=== PATIENT | male | born 1950 | race Caucasian/White ===

== ENCOUNTER 2017-09-22 22:30 | Emergency (ER) | payer MEDICARE, MEDICAID ==
[~2017-09-22] VITALS: Ht 152.4 cm; Wt 78.0 kg
[~2017-09-22 22:30] MED LIST: ACET1TAB12 PO; AMLO10TA80 PO; BENA20TA3 PO; CLON0.2T PO; GABA-531 PO; GLIP5TAB12 PO; GLYBURIDE; HYDR-3513 PO; IBUP-2030 PO; METF10002 PO; NAPR-679 PO; RANI150C12 PO; SIMVASTATIN; ZOLP10TA2 PO; ZOLP10TA6 PO
[2017-09-23] MEDS ORDERED: HYDROCODONE/ACETAMINOPHEN 5/325MG TABLET PO ONE (11:15)
[2017-09-23 12:10] VITALS: BP 145/88
[2017-09-23 17:13] LABS: CLARITY URINE CLEAR (CLEAR); COLOR URINE YELLOW (YELLOW); KETONES URINE 1+ (NEGATIVE); LEUKOCYTE ESTERASE URINE NEGATIVE (NEGATIVE); NITRITE URINE NEGATIVE (NEGATIVE); OCCULT BLOOD URINE NEGATIVE (NEGATIVE); PROTEIN URINE TRACE (NEGATIVE); SPECIFIC GRAVITY URINE 1.018 (1.005-1.030); UROBILINOGEN URINE 0.2 E.U./dL (0.2-1.0)
== END 2017-09-23 12:12 | disposition home or self-care (01) ==
LOC: ER 23:20
DX: S22.31XA Fracture of one rib, right side, initial encounter for closed fracture (principal); I10 Essential (primary) hypertension; E78.00 Pure hypercholesterolemia, unspecified; E11.9 Type 2 diabetes mellitus without complications; F17.200 Nicotine dependence, unspecified, uncomplicated; W19.XXXA Unspecified fall, initial encounter; Y93.89 Activity, other specified; Y99.8 Other external cause status; Y92.89 Other specified places as the place of occurrence of the external cause
CPT/HCPCS: 71101; 81001; 82962; 99285

== ENCOUNTER 2018-09-29 16:37 | Emergency (ER) | payer MEDICARE, MEDICAID ==
[~2018-09-29] VITALS: Ht 170.2 cm; Wt 70.0 kg
[~2018-09-29 16:37] MED LIST changes: +BENA20TA10 PO; -BENA20TA3 PO; +METF-416 PO; -METF10002 PO
[2018-09-29 16:40] VITALS: BP 111/65
== END 2018-09-29 21:20 | disposition left against medical advice (07) ==
LOC: ER 16:37
DX: F10.129 Alcohol abuse with intoxication, unspecified (principal); Z53.21 Procedure and treatment not carried out due to patient leaving prior to being seen by health care provider

== ENCOUNTER 2019-02-08 20:51 | Emergency (ER) | payer MEDICARE, MEDICAID ==
[~2019-02-08] VITALS: Ht 167.6 cm; Wt 77.2 kg
[2019-02-08 22:30] LABS: BASOPHILS % 0.5 % (0.0-2.0); EOSINOPHILS % 0.4 % (0.0-5.0); HEMATOCRIT. 35.6 % (42.0-52.0); HEMOGLOBIN. 12.1 g/dL (14.0-18.0); LYMPHOCYTES % 23.3 % (20.0-50.0); MEAN CORPUSCULAR HEMOGLOBIN 32.5 pg (28.0-32.0); MEAN PLATELET VOLUME 8.1 fl (7.4-10.4); MONOCYTES % 6.1 % (2.0-8.0); NEUTROPHILS % 69.7 % (40.0-76.0); PLATELET 207 x1000/uL (130-400); RED BLOOD CELL COUNT 3.71 mill/uL (4.7-6.1); RED CELL DISTRIBUTION WIDTH 13.5 % (11.6-14.6)
[2019-02-08 22:31] LABS: INR 1.1; PROTHROMBIN TIME 10.8 sec (9.6-11.0)
[2019-02-08 22:37] LABS: CHLORIDE 103 mEq/L (98-107)
[2019-02-08 22:41] LABS: ETHANOL BLOOD 275 mg/dL
[2019-02-08] MEDS ORDERED: MAGNESIUM/ALUMINUM HYDROXIDE/SIMETHICONE 30ML UDC PO NR (23:51)
[2019-02-08] MEDS ORDERED: ONDANSETRON HCL 4MG/2ML INJ IV NR (23:51)
[2019-02-08] MEDS ORDERED: VISCOUS LIDOCAINE 2% 15 ML UDC PO NR (23:51)
[2019-02-08] MEDS ORDERED: FAMOTIDINE 20MG/2ML VIAL IV NR (23:51)
[2019-02-08] MEDS ORDERED: SODIUM CHLORIDE 0.9% 1,000 ML IV NR (23:51)
[2019-02-09 01:00] VITALS: BP 101/63
== END 2019-02-09 02:10 | disposition home or self-care (01) ==
LOC: ER 20:51
DX: R10.13 Epigastric pain (principal); R11.2 Nausea with vomiting, unspecified; D64.9 Anemia, unspecified; F10.129 Alcohol abuse with intoxication, unspecified; E11.9 Type 2 diabetes mellitus without complications; I11.0 Hypertensive heart disease with heart failure; Y90.8 Blood alcohol level of 240 mg/100 ml or more
CPT/HCPCS: 36415; 71045; 80053; 80320; 83690; 85025; 85610; 93005; 96361; 96374; 96375; 99284; J2405; J3490; G0480

== ENCOUNTER 2019-11-27 17:03 | Emergency (ER) | payer MEDICARE, OTHER, MEDICAID ==
[~2019-11-27] VITALS: Ht 165.1 cm; Wt 85.0 kg
[2019-11-27 17:15] VITALS: BP 108/72
== END 2019-11-27 18:24 | disposition left against medical advice (07) ==
LOC: ER 17:03
DX: R53.1 Weakness (principal); Z53.21 Procedure and treatment not carried out due to patient leaving prior to being seen by health care provider

== ENCOUNTER 2021-02-06 16:12 | Emergency (ER) | payer MEDICARE, OTHER, MEDICAID ==
[~2021-02-06] VITALS: Ht 172.7 cm; Wt 82.0 kg
[~2021-02-06 16:12] MED LIST changes: -GABA-531 PO; +GABA-532 PO
[2021-02-06 16:18] VITALS: BP 100/54
== END 2021-02-06 17:15 | disposition left against medical advice (07) ==
LOC: ER 16:12
DX: M79.604 Pain in right leg (principal); E11.9 Type 2 diabetes mellitus without complications; I10 Essential (primary) hypertension; Z79.899 Other long term (current) drug therapy; Z98.890 Other specified postprocedural states
CPT/HCPCS: 99281

== ENCOUNTER 2021-05-26 16:17 | Inpatient (IN) | payer MEDICARE, MEDICAID ==
[~2021-05-26] VITALS: Ht 154.9 cm; Wt 81.3 kg
[~2021-05-26 16:17] MED LIST changes: -GLYBURIDE; -SIMVASTATIN
[2021-05-26 17:06] LABS: BASOPHILS % 0.7 % (0.0-2.0); EOSINOPHILS % 4.4 % (0.0-5.0); HEMATOCRIT. 34.6 % (42.0-52.0); HEMOGLOBIN. 12.2 g/dL (14.0-18.0); LYMPHOCYTES % 27.2 % (20.0-50.0); MEAN CORPUSCULAR VOLUME 93.8 fL (80.0-94.0); MEAN PLATELET VOLUME 8.2 fl (7.4-10.4); MONOCYTES % 7.1 % (2.0-8.0); NEUTROPHILS % 60.6 % (40.0-76.0); PLATELET 199 x1000/uL (130-400); RED BLOOD CELL COUNT 3.69 mill/uL (4.7-6.1); RED CELL DISTRIBUTION WIDTH 14.1 % (11.6-14.6)
[2021-05-26 17:13] LABS: CHLORIDE 103 mEq/L (98-107)
[2021-05-26 17:15] LABS: INR 1.1; PROTHROMBIN TIME 11.5 sec (9.6-11.0)
[2021-05-26 17:20] LABS: LDL CHOLESTEROL 110 mg/dL (5-100)
[2021-05-26 17:21] LABS: HDL CHOLESTEROL 41 mg/dL (40-59)
[2021-05-26] MEDS ORDERED: ENOXAPARIN 80MG/0.8ML SYR SUBCUT NR (17:30)
[2021-05-26 19:14] LABS: CLARITY URINE CLEAR (CLEAR); COLOR URINE YELLOW (YELLOW); KETONES URINE NEGATIVE (NEGATIVE); LEUKOCYTE ESTERASE URINE NEGATIVE (NEGATIVE); NITRITE URINE NEGATIVE (NEGATIVE); OCCULT BLOOD URINE NEGATIVE (NEGATIVE); PROTEIN URINE NEGATIVE (NEGATIVE); SPECIFIC GRAVITY URINE 1.043 (1.005-1.030); UROBILINOGEN URINE 0.2 E.U./dL (0.2-1.0)
[2021-05-26] MEDS ORDERED: ATORVASTATIN CALCIUM 10MG TABLET PO SCH (21:00)
[2021-05-26 23:12] VITALS: BP 141/46
[2021-05-27] VITALS: BP 141/40
[2021-05-27 04:00] VITALS: BP 105/45
[2021-05-27] MEDS: ENOXAPARIN 80MG/0.8ML SYR SUBCUT SCH ×2 (05:38→17:08)
[2021-05-27 07:04] LABS: BASOPHILS % 0.7 % (0.0-2.0); EOSINOPHILS % 5.3 % (0.0-5.0); HEMATOCRIT. 35.1 % (42.0-52.0); HEMOGLOBIN. 12.2 g/dL (14.0-18.0); LYMPHOCYTES % 37.3 % (20.0-50.0); MEAN CORPUSCULAR HEMOGLOBIN 32.5 pg (28.0-32.0); MEAN CORPUSCULAR VOLUME 93.1 fL (80.0-94.0); MEAN PLATELET VOLUME 8.2 fl (7.4-10.4); MONOCYTES % 7.9 % (2.0-8.0); NEUTROPHILS % 48.8 % (40.0-76.0); PLATELET 199 x1000/uL (130-400); RED BLOOD CELL COUNT 3.77 mill/uL (4.7-6.1); RED CELL DISTRIBUTION WIDTH 14.2 % (11.6-14.6)
[2021-05-27 07:15] LABS: CHLORIDE 106 mEq/L (98-107)
[2021-05-27] MEDS: ASPIRIN 81MG TABLET PO SCH (08:17)
[2021-05-27 08:21] VITALS: BP 123/40
[2021-05-27] MEDS ORDERED: THIAMINE HCL 100MG TABLET PO NR (09:30)
[2021-05-27] MEDS ORDERED: HYDROCODONE/ACETAMINOPHEN 5/325MG TABLET PO PRN (09:30)
[2021-05-27] MEDS ORDERED: ACETAMINOPHEN 325MG TABLET PO PRN (09:30)
[2021-05-27] MEDS ORDERED: NALOXONE HCL 0.4MG/ML VIAL IV PRN (09:45)
[2021-05-27] MEDS ORDERED: DEXTROSE 50% WATER 50ML SYRINGE IV PRN (10:00)
[2021-05-27] MEDS: LINAGLIPTIN 5MG TABLET PO SCH (10:53)
[2021-05-27] MEDS: BLOOD SUGAR DIAGNOSTIC STRIP TEST SCH ×3 (11:26→21:00)
[2021-05-27] MEDS: INSULIN LISPRO 100 UNITS/ML SUBCUT SCH ×3 (11:53→21:00)
[2021-05-27 12:03] VITALS: BP 108/51
[2021-05-27 15:55] VITALS: BP 108/53
[2021-05-27] MEDS: IPRATROPIUM/ALBUTEROL 0.5-3(2.5)MG/3ML NEB HHN SCH ×2 (16:14→21:41)
[2021-05-27] MEDS: METFORMIN HCL 500MG TABLET PO SCH (17:08)
[2021-05-27 20:00] VITALS: BP 118/65
[2021-05-27] MEDS ORDERED: ATORVASTATIN CALCIUM 40MG TABLET PO SCH (21:00)
[2021-05-27] MEDS: OMEPRAZOLE 20MG CAPSULE EXTENDED RELEASE PO SCH (21:05)
[2021-05-28] VITALS: BP 125/78
[2021-05-28] MEDS: IPRATROPIUM/ALBUTEROL 0.5-3(2.5)MG/3ML NEB HHN SCH ×4 (01:35→12:00)
[2021-05-28 04:00] VITALS: BP 114/77
[2021-05-28] MEDS: ENOXAPARIN 80MG/0.8ML SYR SUBCUT SCH (05:36)
[2021-05-28] MEDS: BLOOD SUGAR DIAGNOSTIC STRIP TEST SCH ×2 (05:40→12:31)
[2021-05-28] MEDS: OMEPRAZOLE 20MG CAPSULE EXTENDED RELEASE PO SCH (06:09)
[2021-05-28] MEDS: METFORMIN HCL 500MG TABLET PO SCH (06:11)
[2021-05-28] MEDS: INSULIN LISPRO 100 UNITS/ML SUBCUT SCH ×2 (06:14→12:34)
[2021-05-28] MEDS ORDERED: OMEPRAZOLE 20MG CAPSULE EXTENDED RELEASE PO SCH (06:40)
[2021-05-28 07:34] LABS: BASOPHILS % 0.5 % (0.0-2.0); EOSINOPHILS % 1.6 % (0.0-5.0); HEMATOCRIT. 37.3 % (42.0-52.0); HEMOGLOBIN. 12.9 g/dL (14.0-18.0); LYMPHOCYTES % 26.6 % (20.0-50.0); MEAN CORPUSCULAR HEMOGLOBIN 32.4 pg (28.0-32.0); MEAN CORPUSCULAR VOLUME 93.8 fL (80.0-94.0); MEAN PLATELET VOLUME 8.1 fl (7.4-10.4); MONOCYTES % 5.9 % (2.0-8.0); NEUTROPHILS % 65.4 % (40.0-76.0); PLATELET 204 x1000/uL (130-400); RED BLOOD CELL COUNT 3.98 mill/uL (4.7-6.1); RED CELL DISTRIBUTION WIDTH 14.5 % (11.6-14.6)
[2021-05-28 07:44] LABS: CHLORIDE 104 mEq/L (98-107)
[2021-05-28 08:00] VITALS: BP 126/85
[2021-05-28] MEDS: ASPIRIN 81MG TABLET PO SCH (08:46)
[2021-05-28] MEDS: LINAGLIPTIN 5MG TABLET PO SCH (08:46)
[2021-05-28] MEDS ORDERED: THIAMINE HCL 100MG TABLET PO SCH (09:00)
[2021-05-28] MEDS ORDERED: FOLIC ACID/VITAMIN B COMP W-C TABLET PO SCH (09:00)
[2021-05-28] MEDS ORDERED: DOCUSATE SODIUM 250MG CAPSULE PO SCH (09:00)
[2021-05-28 12:00] VITALS: BP 126/75
[2021-05-28 13:05] VITALS: BP 126/75
[2021-05-28] MEDS ORDERED: APIXABAN 5 MG TABLET PO SCH (18:00)
[2021-05-29] MEDS ORDERED: FAMOTIDINE 20MG TABLET PO SCH (09:00)
== END 2021-05-28 14:00 | disposition home or self-care (01) | DRG 175 ==
LOC: ER 16:17 → MICUSO 16:55 → EDBEDREQ 18:42 → EDBEDREQTM 18:42 → 7EST 20:51
PROVIDERS: ADMIT Internal Medicine Geriatric Medicine; ATTEND Internal Medicine Geriatric Medicine
DX: I26.99 Other pulmonary embolism without acute cor pulmonale (principal); J96.01 Acute respiratory failure with hypoxia; I50.32 Chronic diastolic (congestive) heart failure; M96.1 Postlaminectomy syndrome, not elsewhere classified; I48.0 Paroxysmal atrial fibrillation; I25.10 Atherosclerotic heart disease of native coronary artery without angina pectoris; I11.0 Hypertensive heart disease with heart failure; G89.4 Chronic pain syndrome; M19.90 Unspecified osteoarthritis, unspecified site; E78.5 Hyperlipidemia, unspecified; E78.1 Pure hyperglyceridemia; E78.00 Pure hypercholesterolemia, unspecified; Z96.651 Presence of right artificial knee joint; E11.9 Type 2 diabetes mellitus without complications; Y90.9 Presence of alcohol in blood, level not specified; F10.20 Alcohol dependence, uncomplicated; F41.1 Generalized anxiety disorder; F32.9 Major depressive disorder, single episode, unspecified; Z79.01 Long term (current) use of anticoagulants; Z79.899 Other long term (current) drug therapy; Z79.84 Long term (current) use of oral hypoglycemic drugs; Z79.1 Long term (current) use of non-steroidal anti-inflammatories (NSAID)
CPT/HCPCS: 36415; 71045; 80048; 80061; 81003; 82962; 83036; 83735; 83880; 84484; 85025; 93005; 93306; 93970; 94640; 99285; J1650; J1815

== ENCOUNTER 2021-08-06 16:13 | Inpatient (IN) | payer MEDICARE, MEDICAID ==
[~2021-08-06] VITALS: Ht 167.6 cm; Wt 79.4 kg
[2021-08-06] MEDS ORDERED: ACETAMINOPHEN 325MG TABLET PO ONE (17:30)
[2021-08-06] MEDS ORDERED: MORPHINE SULFATE 4 MG/ML CPJ (NOT FOR IM USE) IV STA (19:17)
[2021-08-06 20:34] LABS: BASOPHILS % 0.3 % (0.0-2.0); HEMATOCRIT. 39.1 % (42.0-52.0); LYMPHOCYTES % 19.1 % (20.0-50.0); MEAN CORPUSCULAR HEMOGLOBIN 31.8 pg (28.0-32.0); MEAN CORPUSCULAR VOLUME 95.8 fL (80.0-94.0); MEAN PLATELET VOLUME 9.1 fl (7.4-10.4); MONOCYTES % 6.5 % (2.0-8.0); NEUTROPHILS % 73.1 % (40.0-76.0); PLATELET 148 x1000/uL (130-400); RED BLOOD CELL COUNT 4.09 mill/uL (4.7-6.1); RED CELL DISTRIBUTION WIDTH 13.8 % (11.6-14.6)
[2021-08-06 20:42] LABS: CHLORIDE 102 mEq/L (98-107)
[2021-08-06 20:43] LABS: INR 1.1; PROTHROMBIN TIME 11.7 sec (9.6-11.0)
[2021-08-06] MEDS ORDERED: SODIUM CHLORIDE 0.9% 1,000 ML IV ONE (21:45)
[2021-08-06 23:43] VITALS: BP 108/50
[2021-08-07 04:00] VITALS: BP 146/87
[2021-08-07] MEDS ORDERED: ONDANSETRON HCL 4MG/2ML INJ IV PRN (05:15)
[2021-08-07] MEDS ORDERED: ACETAMINOPHEN 325MG TABLET PO PRN (05:15)
[2021-08-07] MEDS ORDERED: DIPHENHYDRAMINE 50MG/ML VIAL IV PRN (05:15)
[2021-08-07] MEDS ORDERED: CLONIDINE 0.1MG TABLET PO PRN (05:15)
[2021-08-07] MEDS: DEXT 5%/0.45% NACL 1000ML 1,000 ML IV SCH ×2 (05:38→21:19)
[2021-08-07] MEDS: MORPHINE SULFATE 2 MG/ML CPJ (NOT FOR IM USE) IV PRN ×2 (05:41→21:10)
[2021-08-07] MEDS ORDERED: NALOXONE HCL 0.4MG/ML VIAL IV PRN (05:45)
[2021-08-07] MEDS ORDERED: DEXTROSE 50% WATER 50ML SYRINGE IV PRN (07:15)
[2021-08-07] MEDS: BLOOD SUGAR DIAGNOSTIC STRIP TEST SCH ×4 (07:28→21:16)
[2021-08-07 08:00] VITALS: BP 135/66
[2021-08-07] MEDS: INSULIN LISPRO 100 UNITS/ML SUBCUT SCH ×4 (08:32→21:20)
[2021-08-07 12:00] VITALS: BP 134/68
[2021-08-07] MEDS: AMLODIPINE 10MG TABLET PO SCH (12:05)
[2021-08-07] MEDS: ENOXAPARIN 40MG/0.4ML SYR SUBCUT SCH (12:06)
[2021-08-07] MEDS: GABAPENTIN 300MG CAPSULE PO SCH ×3 (12:45→21:11)
[2021-08-07 16:00] VITALS: BP 130/77
[2021-08-07] MEDS ORDERED: APIX5TAB PO (19:48)
[2021-08-07 20:00] VITALS: BP 124/76
[2021-08-07] MEDS ORDERED: CLONIDINE 0.2MG TABLET PO SCH (21:00)
[2021-08-07] MEDS: CLONIDINE 0.1MG TABLET PO SCH (21:14)
[2021-08-08] VITALS: BP 123/68
[2021-08-08 04:00] VITALS: BP 122/71
[2021-08-08] MEDS: CLONIDINE 0.1MG TABLET PO SCH ×3 (04:34→21:19)
[2021-08-08] MEDS: GABAPENTIN 300MG CAPSULE PO SCH ×3 (05:05→21:18)
[2021-08-08] MEDS: MORPHINE SULFATE 2 MG/ML CPJ (NOT FOR IM USE) IV PRN ×2 (05:13→14:17)
[2021-08-08] MEDS: BLOOD SUGAR DIAGNOSTIC STRIP TEST SCH ×4 (05:28→21:13)
[2021-08-08] MEDS: GLIPIZIDE 5MG TABLET PO SCH (06:03)
[2021-08-08] MEDS: INSULIN LISPRO 100 UNITS/ML SUBCUT SCH ×4 (06:09→22:18)
[2021-08-08 07:29] LABS: BASOPHILS % 0.6 % (0.0-2.0); EOSINOPHILS % 3.3 % (0.0-5.0); HEMATOCRIT. 35.9 % (42.0-52.0); HEMOGLOBIN. 12.2 g/dL (14.0-18.0); LYMPHOCYTES % 24.8 % (20.0-50.0); MEAN CORPUSCULAR HEMOGLOBIN 32.1 pg (28.0-32.0); MEAN CORPUSCULAR VOLUME 94.4 fL (80.0-94.0); MEAN PLATELET VOLUME 8.9 fl (7.4-10.4); MONOCYTES % 13.2 % (2.0-8.0); NEUTROPHILS % 58.1 % (40.0-76.0); PLATELET 136 x1000/uL (130-400); RED CELL DISTRIBUTION WIDTH 13.5 % (11.6-14.6)
[2021-08-08 07:38] LABS: CHLORIDE 105 mEq/L (98-107)
[2021-08-08 08:00] VITALS: BP 130/61
[2021-08-08] MEDS: ENOXAPARIN 40MG/0.4ML SYR SUBCUT SCH (08:30)
[2021-08-08] MEDS: AMLODIPINE 10MG TABLET PO SCH (08:31)
[2021-08-08 12:00] VITALS: BP 120/70
[2021-08-08] MEDS: DEXT 5%/0.45% NACL 1000ML 1,000 ML IV SCH (14:25)
[2021-08-08 16:00] VITALS: BP 150/83
[2021-08-08 20:00] VITALS: BP 128/64
[2021-08-09] VITALS: BP 112/63
[2021-08-09 04:00] VITALS: BP 115/61
[2021-08-09] MEDS: CLONIDINE 0.1MG TABLET PO SCH ×3 (04:54→21:00)
[2021-08-09] MEDS: MORPHINE SULFATE 2 MG/ML CPJ (NOT FOR IM USE) IV PRN (04:56)
[2021-08-09] MEDS: GABAPENTIN 300MG CAPSULE PO SCH ×3 (04:58→22:49)
[2021-08-09] MEDS: BLOOD SUGAR DIAGNOSTIC STRIP TEST SCH ×4 (05:37→21:00)
[2021-08-09] MEDS: INSULIN LISPRO 100 UNITS/ML SUBCUT SCH ×4 (05:41→21:00)
[2021-08-09 06:23] LABS: BASOPHILS % 0.4 % (0.0-2.0); EOSINOPHILS % 4.5 % (0.0-5.0); HEMOGLOBIN. 11.3 g/dL (14.0-18.0); LYMPHOCYTES % 23.9 % (20.0-50.0); MEAN CORPUSCULAR HEMOGLOBIN 31.5 pg (28.0-32.0); MEAN CORPUSCULAR VOLUME 94.5 fL (80.0-94.0); MONOCYTES % 10.9 % (2.0-8.0); NEUTROPHILS % 60.3 % (40.0-76.0); PLATELET 125 x1000/uL (130-400); RED BLOOD CELL COUNT 3.59 mill/uL (4.7-6.1); RED CELL DISTRIBUTION WIDTH 13.4 % (11.6-14.6)
[2021-08-09 06:30] LABS: CHLORIDE 105 mEq/L (98-107)
[2021-08-09] MEDS: GLIPIZIDE 5MG TABLET PO SCH (06:51)
[2021-08-09 08:00] VITALS: BP 121/64
[2021-08-09] MEDS: DEXT 5%/0.45% NACL 1000ML 1,000 ML IV SCH (08:20)
[2021-08-09] MEDS: AMLODIPINE 10MG TABLET PO SCH (08:22)
[2021-08-09] MEDS: ENOXAPARIN 40MG/0.4ML SYR SUBCUT SCH (08:23)
[2021-08-09] MEDS ORDERED: LIDOCAINE HCL/EPINEPHRINE 1%-EPI 1:100,000 20 ML VIAL ONE (09:25)
[2021-08-09] MEDS ORDERED: POLYMYXIN B SULFATE 500000 UNITS/VIAL ONE (09:25)
[2021-08-09] MEDS ORDERED: VANCOMYCIN HCL 1 GM/VIAL ONE (09:25)
[2021-08-09] MEDS ORDERED: FENTANYL CITRATE/PF 50MCG/ML 2ML VIAL ONE ×2 (10:20→10:21)
[2021-08-09] MEDS ORDERED: SODIUM CHLORIDE 0.9% 10ML VIAL ONE (10:21)
[2021-08-09] MEDS ORDERED: PHENYLEPHRINE HCL 10 MG/ML 1ML (IV VIAL) IV ONE (10:21)
[2021-08-09] MEDS ORDERED: METOCLOPRAMIDE HCL 10MG/2ML VIAL ONE (10:21)
[2021-08-09] MEDS ORDERED: SUCCINYLCHOLINE CHLORIDE 200MG/10ML IV ONE (10:21)
[2021-08-09] MEDS ORDERED: CEFAZOLIN SODIUM 1000MG/VIAL ONE (10:21)
[2021-08-09] MEDS ORDERED: ONDANSETRON HCL 4MG/2ML INJ ONE (10:21)
[2021-08-09] MEDS ORDERED: NEOSTIGMINE METHYLSULFATE 1MG/ML 10 ML VIAL ONE (10:21)
[2021-08-09] MEDS ORDERED: GLYCOPYRROLATE 0.2 MG/ML 2ML VIAL ONE (10:21)
[2021-08-09] MEDS ORDERED: PROPOFOL 200MG/20ML VIAL IV ONE (10:21)
[2021-08-09] MEDS ORDERED: MIDAZOLAM HCL 2 MG/2 ML VIAL ONE (10:21)
[2021-08-09] MEDS ORDERED: ROPIVACAINE HCL 10MG/ML 20 ML VIAL EPI ONE (10:28)
[2021-08-09] MEDS ORDERED: VECURONIUM BROMIDE 10 MG/VIAL IV ONE (10:37)
[2021-08-09] MEDS ORDERED: MEPERIDINE HCL/PF 25MG/ML CPJ IV PRN ×2 (11:30)
[2021-08-09] MEDS ORDERED: SODIUM CHLORIDE 0.9% 1,000 ML IV ONE (11:30)
[2021-08-09] MEDS ORDERED: ONDANSETRON HCL 4MG/2ML INJ IV PRN (11:30)
[2021-08-09] MEDS ORDERED: MORPHINE SULFATE 2 MG/ML CPJ (NOT FOR IM USE) IV PRN (11:30)
[2021-08-09] MEDS ORDERED: FENTANYL CITRATE/PF 50MCG/ML 5ML VIAL ONE (11:36)
[2021-08-09] MEDS ORDERED: HYDROCODONE/ACETAMINOPHEN 5/325MG TABLET PO PRN (12:30)
[2021-08-09] MEDS ORDERED: HYDROMORPHONE PCA 10MG/50ML IV PRN (12:51)
[2021-08-09] MEDS ORDERED: DIPHENHYDRAMINE INJ IV PRN (13:00)
[2021-08-09] MEDS ORDERED: ONDANSETRON INJ IV PRN (13:00)
[2021-08-09] MEDS ORDERED: NALOXONE INJ IV PRN (13:00)
[2021-08-09] MEDS: HYDROMORPHONE HCL/PF 2MG/ML CPJ IV PRN ×3 (13:05→13:35)
[2021-08-09 16:00] VITALS: BP 115/68
[2021-08-09] MEDS: CEFAZOLIN 2,000 MG in DEXT 5% WATER 100 ML IV SCH ×2 (16:56→22:48)
[2021-08-09 20:00] VITALS: BP 109/64
[2021-08-10] VITALS: BP 118/67
[2021-08-10] MEDS: DEXT 5%/0.45% NACL 1000ML 1,000 ML IV SCH ×2 (02:18→15:18)
[2021-08-10 04:00] VITALS: BP 130/70
[2021-08-10 06:31] LABS: BASOPHILS % 0.4 % (0.0-2.0); EOSINOPHILS % 2.7 % (0.0-5.0); HEMATOCRIT. 28.5 % (42.0-52.0); HEMOGLOBIN. 9.7 g/dL (14.0-18.0); LYMPHOCYTES % 18.8 % (20.0-50.0); MEAN CORPUSCULAR HEMOGLOBIN 32.3 pg (28.0-32.0); MEAN CORPUSCULAR VOLUME 95.2 fL (80.0-94.0); MEAN PLATELET VOLUME 8.4 fl (7.4-10.4); MONOCYTES % 12.3 % (2.0-8.0); NEUTROPHILS % 65.8 % (40.0-76.0); PLATELET 144 x1000/uL (130-400); RED CELL DISTRIBUTION WIDTH 13.4 % (11.6-14.6)
[2021-08-10] MEDS: CEFAZOLIN 2,000 MG in DEXT 5% WATER 100 ML IV SCH ×3 (06:38→21:16)
[2021-08-10] MEDS: GLIPIZIDE 5MG TABLET PO SCH (06:39)
[2021-08-10] MEDS: GABAPENTIN 300MG CAPSULE PO SCH ×3 (06:40→21:16)
[2021-08-10 07:01] LABS: CHLORIDE 105 mEq/L (98-107)
[2021-08-10] MEDS: BLOOD SUGAR DIAGNOSTIC STRIP TEST SCH ×4 (07:14→20:39)
[2021-08-10] MEDS: CLONIDINE 0.1MG TABLET PO SCH ×3 (07:16→21:16)
[2021-08-10 08:00] VITALS: BP 120/68
[2021-08-10] MEDS: ENOXAPARIN 40MG/0.4ML SYR SUBCUT SCH (08:42)
[2021-08-10] MEDS: INSULIN LISPRO 100 UNITS/ML SUBCUT SCH ×4 (08:45→21:18)
[2021-08-10] MEDS: AMLODIPINE 10MG TABLET PO SCH (08:46)
[2021-08-10] MEDS: LACTULOSE 20G/30ML UDC PO SCH ×2 (09:00→10:23)
[2021-08-10] MEDS ORDERED: ERGOCALCIFEROL 50000UNITS CAPSULE PO SCH (09:00)
[2021-08-10] MEDS: DOCUSATE SODIUM 250MG CAPSULE PO SCH (10:22)
[2021-08-10] MEDS: CALCIUM 1250MG TABLET (500MG ELEMENTAL CALCIUM) PO SCH (10:22)
[2021-08-10] MEDS: FERROUS SULFATE 325MG TABLET PO SCH ×2 (10:23→18:30)
[2021-08-10 10:43] LABS: TOTAL IRON BINDING CAPACITY 199 ug/dL (250-450)
[2021-08-10 12:00] VITALS: BP 130/72
[2021-08-10 16:00] VITALS: BP 105/59
[2021-08-10 20:00] VITALS: BP 110/53
[2021-08-11] VITALS: BP 110/64
[2021-08-11 04:00] VITALS: BP 105/60
[2021-08-11] MEDS: CLONIDINE 0.1MG TABLET PO SCH ×3 (05:00→21:12)
[2021-08-11] MEDS: CEFAZOLIN 2,000 MG in DEXT 5% WATER 100 ML IV SCH ×2 (05:58→15:15)
[2021-08-11] MEDS: GABAPENTIN 300MG CAPSULE PO SCH ×3 (06:01→21:12)
[2021-08-11] MEDS: INSULIN LISPRO 100 UNITS/ML SUBCUT SCH ×4 (06:01→21:14)
[2021-08-11] MEDS: BLOOD SUGAR DIAGNOSTIC STRIP TEST SCH ×4 (06:02→21:12)
[2021-08-11] MEDS: FERROUS SULFATE 325MG TABLET PO SCH ×2 (06:04→17:08)
[2021-08-11] MEDS: GLIPIZIDE 5MG TABLET PO SCH (06:07)
[2021-08-11 07:44] LABS: CHLORIDE 101 mEq/L (98-107)
[2021-08-11 08:00] VITALS: BP 99/53
[2021-08-11 08:33] LABS: BASOPHILS % 0.4 % (0.0-2.0); EOSINOPHILS % 3.2 % (0.0-5.0); MEAN CORPUSCULAR HEMOGLOBIN 31.8 pg (28.0-32.0); MEAN CORPUSCULAR VOLUME 93.8 fL (80.0-94.0); MEAN PLATELET VOLUME 8.1 fl (7.4-10.4); MONOCYTES % 13.2 % (2.0-8.0); NEUTROPHILS % 64.2 % (40.0-76.0); PLATELET 140 x1000/uL (130-400); RED BLOOD CELL COUNT 2.51 mill/uL (4.7-6.1); RED CELL DISTRIBUTION WIDTH 13.4 % (11.6-14.6)
[2021-08-11 08:39] LABS: HEMATOCRIT. 23.5 % (42.0-52.0)
[2021-08-11] MEDS: DOCUSATE SODIUM 250MG CAPSULE PO SCH (08:56)
[2021-08-11] MEDS: AMLODIPINE 10MG TABLET PO SCH (08:57)
[2021-08-11] MEDS: ENOXAPARIN 40MG/0.4ML SYR SUBCUT SCH (08:57)
[2021-08-11] MEDS ORDERED: MAGNESIUM 2 G PREMIX 50 ML IV NR (10:00)
[2021-08-11 11:40] LABS: HEMATOCRIT 23.6 % (42.0-52.0)
[2021-08-11 12:00] VITALS: BP 114/53
[2021-08-11] MEDS: APIXABAN 5 MG TABLET PO SCH ×2 (12:40→21:12)
[2021-08-11] MEDS: IPRATROPIUM/ALBUTEROL 0.5-3(2.5)MG/3ML NEB HHN SCH ×2 (13:56→21:20)
[2021-08-11] MEDS: CALCIUM 1250MG TABLET (500MG ELEMENTAL CALCIUM) PO SCH (14:45)
[2021-08-11 16:16] VITALS: BP 94/55
[2021-08-11 20:00] VITALS: BP 111/61
[2021-08-12] VITALS (11 sets, daily range): BP systolic 93–124; BP diastolic 50–70
[2021-08-12] MEDS: IPRATROPIUM/ALBUTEROL 0.5-3(2.5)MG/3ML NEB HHN SCH ×4 (02:04→20:38)
[2021-08-12] MEDS: CLONIDINE 0.1MG TABLET PO SCH ×3 (05:00→21:21)
[2021-08-12] MEDS: APIXABAN 5 MG TABLET PO SCH ×2 (06:08→18:04)
[2021-08-12] MEDS: BLOOD SUGAR DIAGNOSTIC STRIP TEST SCH ×4 (06:16→21:23)
[2021-08-12] MEDS: GABAPENTIN 300MG CAPSULE PO SCH ×3 (06:16→21:22)
[2021-08-12] MEDS: GLIPIZIDE 5MG TABLET PO SCH (06:16)
[2021-08-12] MEDS: INSULIN LISPRO 100 UNITS/ML SUBCUT SCH ×4 (06:19→21:23)
[2021-08-12] MEDS ORDERED: SORBITOL 70% SOLN 30ML PO NR (09:15)
[2021-08-12] MEDS: CALCIUM 1250MG TABLET (500MG ELEMENTAL CALCIUM) PO SCH (09:29)
[2021-08-12] MEDS: DOCUSATE SODIUM 250MG CAPSULE PO SCH (09:29)
[2021-08-12] MEDS: AMLODIPINE 10MG TABLET PO SCH (09:29)
[2021-08-12] MEDS: FERROUS SULFATE 325MG TABLET PO SCH ×2 (09:29→16:20)
[2021-08-12] MEDS ORDERED: NITROGLYCERIN OINT 1GM/INCH UDPKT TD PRN (11:00)
[2021-08-12 11:18] LABS: BASOPHILS % 0.4 % (0.0-2.0); EOSINOPHILS % 2.3 % (0.0-5.0); HEMATOCRIT. 26.4 % (42.0-52.0); LYMPHOCYTES % 10.7 % (20.0-50.0); MEAN CORPUSCULAR VOLUME 93.9 fL (80.0-94.0); MEAN PLATELET VOLUME 7.7 fl (7.4-10.4); MONOCYTES % 10.8 % (2.0-8.0); NEUTROPHILS % 75.8 % (40.0-76.0); PLATELET 149 x1000/uL (130-400); RED BLOOD CELL COUNT 2.81 mill/uL (4.7-6.1); RED CELL DISTRIBUTION WIDTH 13.7 % (11.6-14.6)
[2021-08-12 11:39] LABS: CHLORIDE 102 mEq/L (98-107)
[2021-08-12] MEDS ORDERED: DEXL60CA3 MT (17:56)
[2021-08-12] MEDS ORDERED: SITA100T11 MT (18:02)
[2021-08-12] MEDS ORDERED: ATOR-2 MT (18:02)
[2021-08-12] MEDS ORDERED: TAMS-11 MT (18:02)
[2021-08-12] MEDS ORDERED: LEVO5TAB13 MT (18:08)
[2021-08-12] MEDS ORDERED: EMPA10TA MT (18:21)
[2021-08-12] MEDS ORDERED: GABA-290 MT (18:21)
[2021-08-12] MEDS ORDERED: TRAZ-252 MT (18:21)
[2021-08-12] MEDS ORDERED: GLIM4TAB36 MT (18:21)
[2021-08-12] MEDS ORDERED: METF-873 MT (18:21)
[2021-08-12] MEDS ORDERED: FLUT9.9S BOTHNSTRLS (18:21)
[2021-08-12] MEDS ORDERED: DULA0.75 SQ (18:23)
[2021-08-12] MEDS ORDERED: HYDROCODONE/ACETAMINOPHEN 5/325MG TABLET PO PRN (19:15)
[2021-08-12] MEDS: HYDROCODONE/ACETAMINOPHEN 5/325MG TABLET PO PRN (19:23)
[2021-08-13] VITALS (7 sets, daily range): BP systolic 108–128; BP diastolic 50–69
[2021-08-13] MEDS: IPRATROPIUM/ALBUTEROL 0.5-3(2.5)MG/3ML NEB HHN SCH ×3 (01:18→14:14)
[2021-08-13] MEDS: GLIPIZIDE 5MG TABLET PO SCH (06:23)
[2021-08-13] MEDS: FERROUS SULFATE 325MG TABLET PO SCH ×2 (06:23→17:13)
[2021-08-13] MEDS: APIXABAN 5 MG TABLET PO SCH ×2 (06:23→17:13)
[2021-08-13] MEDS: GABAPENTIN 300MG CAPSULE PO SCH ×3 (06:23→20:48)
[2021-08-13] MEDS: CLONIDINE 0.1MG TABLET PO SCH ×3 (06:24→20:48)
[2021-08-13] MEDS: BLOOD SUGAR DIAGNOSTIC STRIP TEST SCH ×4 (06:31→20:49)
[2021-08-13] MEDS: INSULIN LISPRO 100 UNITS/ML SUBCUT SCH ×4 (06:38→20:49)
[2021-08-13] MEDS: CALCIUM 1250MG TABLET (500MG ELEMENTAL CALCIUM) PO SCH (08:40)
[2021-08-13] MEDS: AMLODIPINE 10MG TABLET PO SCH (08:40)
[2021-08-13] MEDS: DOCUSATE SODIUM 250MG CAPSULE PO SCH (08:40)
[2021-08-13 08:41] LABS: BASOPHILS % 0.6 % (0.0-2.0); EOSINOPHILS % 4.8 % (0.0-5.0); HEMATOCRIT. 26.7 % (42.0-52.0); HEMOGLOBIN. 9.2 g/dL (14.0-18.0); LYMPHOCYTES % 20.1 % (20.0-50.0); MEAN CORPUSCULAR HEMOGLOBIN 32.5 pg (28.0-32.0); MEAN CORPUSCULAR VOLUME 94.3 fL (80.0-94.0); MEAN PLATELET VOLUME 7.7 fl (7.4-10.4); MONOCYTES % 10.1 % (2.0-8.0); NEUTROPHILS % 64.4 % (40.0-76.0); PLATELET 175 x1000/uL (130-400); RED BLOOD CELL COUNT 2.84 mill/uL (4.7-6.1)
[2021-08-13 09:13] LABS: CHLORIDE 105 mEq/L (98-107)
[2021-08-13] MEDS: HYDROCODONE/ACETAMINOPHEN 5/325MG TABLET PO PRN ×2 (13:11→20:56)
== END 2021-08-13 21:29 | DRG 481 ==
LOC: ER 16:13 → 6EST 22:15 → EDBEDREQTM 22:22 → EDBEDREQ 22:22 → ENRESERV 22:40 → 8WST 08-10 23:43
PROVIDERS: ADMIT Internal Medicine Geriatric Medicine; ATTEND Internal Medicine Geriatric Medicine
PROC: 0QSC04Z Reposition Left Lower Femur with Internal Fixation Device, Open Approach (ICD-10-PCS; principal; 2021-08-09)
PROC: 30233N1 Transfusion of Nonautologous Red Blood Cells into Peripheral Vein, Percutaneous Approach (ICD-10-PCS; 2021-08-12)
DX: M97.12XA Periprosthetic fracture around internal prosthetic left knee joint, initial encounter (principal); I13.0 Hypertensive heart and chronic kidney disease with heart failure and stage 1 through stage 4 chronic kidney disease, or unspecified chronic kidney disease; N17.9 Acute kidney failure, unspecified; I50.30 Unspecified diastolic (congestive) heart failure; E87.1 Hypo-osmolality and hyponatremia; E11.22 Type 2 diabetes mellitus with diabetic chronic kidney disease; E11.51 Type 2 diabetes mellitus with diabetic peripheral angiopathy without gangrene; E78.00 Pure hypercholesterolemia, unspecified; E78.1 Pure hyperglyceridemia; E78.5 Hyperlipidemia, unspecified; F10.10 Alcohol abuse, uncomplicated; G89.4 Chronic pain syndrome; I25.10 Atherosclerotic heart disease of native coronary artery without angina pectoris; I48.0 Paroxysmal atrial fibrillation; M19.90 Unspecified osteoarthritis, unspecified site; M96.1 Postlaminectomy syndrome, not elsewhere classified; N18.9 Chronic kidney disease, unspecified; Z96.659 Presence of unspecified artificial knee joint; E83.42 Hypomagnesemia; I44.0 Atrioventricular block, first degree; Z20.822 Contact with and (suspected) exposure to COVID-19; D63.8 Anemia in other chronic diseases classified elsewhere; M81.0 Age-related osteoporosis without current pathological fracture; W05.0XXA Fall from non-moving wheelchair, initial encounter; D50.9 Iron deficiency anemia, unspecified; K59.00 Constipation, unspecified; Z79.84 Long term (current) use of oral hypoglycemic drugs; I25.2 Old myocardial infarction; Z79.01 Long term (current) use of anticoagulants; Z79.4 Long term (current) use of insulin; Z86.16 Personal history of COVID-19; Z86.711 Personal history of pulmonary embolism; Z98.1 Arthrodesis status; Z79.899 Other long term (current) drug therapy; Y93.89 Activity, other specified; Y92.89 Other specified places as the place of occurrence of the external cause; Y99.8 Other external cause status; Z90.10 Acquired absence of unspecified breast and nipple
CPT/HCPCS: 36415; 73502; 73552; 73562; 73590; 73700; 80048; 80053; 82962; 83036; 83540; 83550; 83735; 84484; 85014; 85018; 85025; 86850; 86900; 86920; 87426; 93005; 93306; 93971; 97162; 97166; 97168; 97530; 97535; 99285; C1713; J0330; J0690; J1170; J1650; J1815; J2250; J2270; J2370; J2405; J2704; J2710; J2765; J2795; J3010; J3370; J3475; J3490; J7030; J7040; J7060; L1830; P9016

== ENCOUNTER 2021-08-13 21:30 | Inpatient (IN) | payer MEDICARE, MEDICAID ==
[~2021-08-13] VITALS: Ht 167.6 cm; Wt 90.7 kg
[2021-08-13 21:30] VITALS: BP 124/67
[~2021-08-13 21:30] MED LIST changes: +APIX5TAB PO; +ATOR-2 MT; +DEXL60CA3 MT; +DULA0.75 SQ; +EMPA10TA MT; +FLUT9.9S BOTHNSTRLS; +GABA-290 MT; +GLIM4TAB36 MT; +LEVO5TAB13 MT; -METF-416 PO; +METF-873 MT; -RANI150C12 PO; +SITA100T11 MT; +TAMS-11 MT; +TRAZ-252 MT
[2021-08-13] MEDS ORDERED: CLONIDINE 0.1MG TABLET PO PRN (22:45)
[2021-08-13] MEDS ORDERED: NITROGLYCERIN OINT 1GM/INCH UDPKT TD PRN (22:45)
[2021-08-13] MEDS ORDERED: DEXTROSE 50% WATER 50ML SYRINGE IV PRN (22:45)
[2021-08-14] MEDS: IPRATROPIUM/ALBUTEROL 0.5-3(2.5)MG/3ML NEB HHN SCH ×4 (02:20→21:50)
[2021-08-14] MEDS: BLOOD SUGAR DIAGNOSTIC STRIP TEST SCH ×4 (05:38→21:00)
[2021-08-14] MEDS: GABAPENTIN 300MG CAPSULE PO SCH ×3 (05:39→23:23)
[2021-08-14] MEDS: APIXABAN 5 MG TABLET PO SCH ×2 (05:40→18:23)
[2021-08-14] MEDS: CLONIDINE 0.1MG TABLET PO SCH ×3 (05:40→22:00)
[2021-08-14] MEDS: GLIPIZIDE 5MG TABLET PO SCH (05:41)
[2021-08-14 08:00] VITALS: BP 121/62
[2021-08-14] MEDS: INSULIN LISPRO 100 UNITS/ML SUBCUT SCH ×4 (09:00→23:33)
[2021-08-14] MEDS: DOCUSATE SODIUM 250MG CAPSULE PO SCH (09:00)
[2021-08-14] MEDS: FERROUS SULFATE 325MG TABLET PO SCH ×2 (10:22→18:23)
[2021-08-14] MEDS: AMLODIPINE 10MG TABLET PO SCH (10:23)
[2021-08-14] MEDS: CALCIUM 1250MG TABLET (500MG ELEMENTAL CALCIUM) PO SCH (10:23)
[2021-08-14] MEDS: HYDROCODONE/ACETAMINOPHEN 5/325MG TABLET PO PRN ×2 (10:25→18:27)
[2021-08-14] MEDS ORDERED: TAMSULOSIN HCL 0.4MG SR CAPSULE PO NR (11:30)
[2021-08-14] MEDS ORDERED: NA PHOS,M-B/NA PHOS,DI-BA ENEMA 118ML PR PRN (12:00)
[2021-08-14 20:00] VITALS: BP 119/61
[2021-08-15] MEDS: IPRATROPIUM/ALBUTEROL 0.5-3(2.5)MG/3ML NEB HHN SCH ×4 (01:41→20:58)
[2021-08-15] MEDS: HYDROCODONE/ACETAMINOPHEN 5/325MG TABLET PO PRN ×3 (02:19→15:17)
[2021-08-15] MEDS: CLONIDINE 0.1MG TABLET PO SCH ×3 (06:00→21:33)
[2021-08-15] MEDS: GABAPENTIN 300MG CAPSULE PO SCH ×3 (06:34→21:32)
[2021-08-15] MEDS: APIXABAN 5 MG TABLET PO SCH ×2 (06:34→18:41)
[2021-08-15] MEDS: BLOOD SUGAR DIAGNOSTIC STRIP TEST SCH ×4 (06:34→20:38)
[2021-08-15] MEDS: GLIPIZIDE 5MG TABLET PO SCH (06:37)
[2021-08-15 08:00] VITALS: BP 135/63
[2021-08-15] MEDS: DOCUSATE SODIUM 250MG CAPSULE PO SCH (08:26)
[2021-08-15] MEDS: TAMSULOSIN HCL 0.4MG SR CAPSULE PO SCH (08:27)
[2021-08-15] MEDS: FERROUS SULFATE 325MG TABLET PO SCH ×2 (08:28→16:38)
[2021-08-15] MEDS: INSULIN LISPRO 100 UNITS/ML SUBCUT SCH ×4 (08:29→20:40)
[2021-08-15] MEDS: AMLODIPINE 10MG TABLET PO SCH (08:29)
[2021-08-15] MEDS: CALCIUM 1250MG TABLET (500MG ELEMENTAL CALCIUM) PO SCH (08:29)
[2021-08-15] MEDS: FUROSEMIDE 40MG TABLET PO SCH (11:21)
[2021-08-15] MEDS: POTASSIUM CHLORIDE 10MEQ TABLET SR PO SCH (11:21)
[2021-08-15] MEDS: LACTULOSE 20G/30ML UDC PO PRN (11:22)
[2021-08-15] MEDS: SENNOSIDES/DOCUSATE SOD 8.6/50MG TABLET PO PRN (11:22)
[2021-08-15] MEDS: ACETAMINOPHEN 325MG TABLET PO PRN (11:22)
[2021-08-15 20:00] VITALS: BP 116/65
[2021-08-16 01:43] LABS: CLARITY URINE CLEAR (CLEAR); COLOR URINE YELLOW (YELLOW); KETONES URINE NEGATIVE (NEGATIVE); LEUKOCYTE ESTERASE URINE NEGATIVE (NEGATIVE); NITRITE URINE NEGATIVE (NEGATIVE); OCCULT BLOOD URINE NEGATIVE (NEGATIVE); PH URINE 5.5 (4.5-8.0); PROTEIN URINE NEGATIVE (NEGATIVE); SPECIFIC GRAVITY URINE 1.009 (1.005-1.030); UROBILINOGEN URINE 0.2 E.U./dL (0.2-1.0)
[2021-08-16] MEDS: IPRATROPIUM/ALBUTEROL 0.5-3(2.5)MG/3ML NEB HHN SCH ×4 (02:18→22:07)
[2021-08-16] MEDS: CLONIDINE 0.1MG TABLET PO SCH ×3 (06:00→21:43)
[2021-08-16] MEDS: BLOOD SUGAR DIAGNOSTIC STRIP TEST SCH ×4 (06:30→21:01)
[2021-08-16] MEDS: APIXABAN 5 MG TABLET PO SCH ×2 (06:31→17:50)
[2021-08-16] MEDS: GLIPIZIDE 5MG TABLET PO SCH (06:31)
[2021-08-16] MEDS: GABAPENTIN 300MG CAPSULE PO SCH ×3 (06:31→21:43)
[2021-08-16] MEDS: HYDROCODONE/ACETAMINOPHEN 5/325MG TABLET PO PRN ×3 (06:36→17:51)
[2021-08-16 07:22] LABS: BASOPHILS % 0.7 % (0.0-2.0); EOSINOPHILS % 4.6 % (0.0-5.0); HEMATOCRIT. 27.3 % (42.0-52.0); HEMOGLOBIN. 9.5 g/dL (14.0-18.0); LYMPHOCYTES % 29.2 % (20.0-50.0); MEAN CORPUSCULAR HEMOGLOBIN 32.3 pg (28.0-32.0); MEAN CORPUSCULAR VOLUME 93.1 fL (80.0-94.0); MEAN PLATELET VOLUME 7.3 fl (7.4-10.4); MONOCYTES % 10.7 % (2.0-8.0); NEUTROPHILS % 54.8 % (40.0-76.0); PLATELET 233 x1000/uL (130-400); RED BLOOD CELL COUNT 2.93 mill/uL (4.7-6.1); RED CELL DISTRIBUTION WIDTH 14.2 % (11.6-14.6)
[2021-08-16 07:48] LABS: CHLORIDE 102 mEq/L (98-107)
[2021-08-16 08:00] VITALS: BP 116/57
[2021-08-16] MEDS: TAMSULOSIN HCL 0.4MG SR CAPSULE PO SCH (08:54)
[2021-08-16] MEDS: POTASSIUM CHLORIDE 10MEQ TABLET SR PO SCH (08:55)
[2021-08-16] MEDS: FERROUS SULFATE 325MG TABLET PO SCH ×2 (08:55→17:50)
[2021-08-16] MEDS: FUROSEMIDE 40MG TABLET PO SCH (08:55)
[2021-08-16] MEDS: AMLODIPINE 10MG TABLET PO SCH (08:56)
[2021-08-16] MEDS: CALCIUM 1250MG TABLET (500MG ELEMENTAL CALCIUM) PO SCH (08:56)
[2021-08-16] MEDS: INSULIN LISPRO 100 UNITS/ML SUBCUT SCH ×4 (08:59→21:45)
[2021-08-16] MEDS: DOCUSATE SODIUM 250MG CAPSULE PO SCH (11:14)
[2021-08-16 20:00] VITALS: BP 125/71
[2021-08-17] MEDS: IPRATROPIUM/ALBUTEROL 0.5-3(2.5)MG/3ML NEB HHN SCH ×4 (01:27→21:46)
[2021-08-17] MEDS: BLOOD SUGAR DIAGNOSTIC STRIP TEST SCH ×4 (05:38→21:00)
[2021-08-17] MEDS: CLONIDINE 0.1MG TABLET PO SCH ×3 (06:10→22:00)
[2021-08-17] MEDS: APIXABAN 5 MG TABLET PO SCH ×2 (06:10→17:37)
[2021-08-17] MEDS: GLIPIZIDE 5MG TABLET PO SCH (06:10)
[2021-08-17] MEDS: GABAPENTIN 300MG CAPSULE PO SCH ×3 (06:10→22:05)
[2021-08-17 08:00] VITALS: BP 123/65
[2021-08-17] MEDS: TAMSULOSIN HCL 0.4MG SR CAPSULE PO SCH (08:33)
[2021-08-17] MEDS: ERGOCALCIFEROL 50000UNITS CAPSULE PO SCH (08:33)
[2021-08-17] MEDS: FUROSEMIDE 40MG TABLET PO SCH (08:34)
[2021-08-17] MEDS: DOCUSATE SODIUM 250MG CAPSULE PO SCH (08:34)
[2021-08-17] MEDS: CALCIUM 1250MG TABLET (500MG ELEMENTAL CALCIUM) PO SCH (08:34)
[2021-08-17] MEDS: FERROUS SULFATE 325MG TABLET PO SCH ×2 (08:34→17:37)
[2021-08-17] MEDS: POTASSIUM CHLORIDE 10MEQ TABLET SR PO SCH (08:34)
[2021-08-17] MEDS: AMLODIPINE 10MG TABLET PO SCH (08:34)
[2021-08-17] MEDS: INSULIN LISPRO 100 UNITS/ML SUBCUT SCH ×4 (08:42→22:05)
[2021-08-17] MEDS: HYDROCODONE/ACETAMINOPHEN 5/325MG TABLET PO PRN ×2 (14:11→22:07)
[2021-08-17 20:00] VITALS: BP 117/57
[2021-08-18] MEDS: IPRATROPIUM/ALBUTEROL 0.5-3(2.5)MG/3ML NEB HHN SCH ×4 (02:15→21:26)
[2021-08-18] MEDS: CLONIDINE 0.1MG TABLET PO SCH ×3 (06:00→21:30)
[2021-08-18] MEDS: BLOOD SUGAR DIAGNOSTIC STRIP TEST SCH ×4 (06:30→21:50)
[2021-08-18] MEDS: GABAPENTIN 300MG CAPSULE PO SCH ×3 (06:48→21:29)
[2021-08-18] MEDS: APIXABAN 5 MG TABLET PO SCH ×2 (06:48→17:46)
[2021-08-18] MEDS: GLIPIZIDE 5MG TABLET PO SCH (06:50)
[2021-08-18] MEDS: HYDROCODONE/ACETAMINOPHEN 5/325MG TABLET PO PRN (06:50)
[2021-08-18] MEDS: INSULIN LISPRO 100 UNITS/ML SUBCUT SCH ×4 (06:51→22:00)
[2021-08-18 07:53] LABS: CHLORIDE 101 mEq/L (98-107)
[2021-08-18 07:59] LABS: BASOPHILS % 0.6 % (0.0-2.0); HEMATOCRIT. 30.7 % (42.0-52.0); HEMOGLOBIN. 10.9 g/dL (14.0-18.0); LYMPHOCYTES % 30.6 % (20.0-50.0); MEAN CORPUSCULAR HEMOGLOBIN 32.9 pg (28.0-32.0); MEAN CORPUSCULAR VOLUME 92.3 fL (80.0-94.0); MEAN PLATELET VOLUME 7.1 fl (7.4-10.4); MONOCYTES % 8.1 % (2.0-8.0); NEUTROPHILS % 55.7 % (40.0-76.0); PLATELET 275 x1000/uL (130-400); RED BLOOD CELL COUNT 3.33 mill/uL (4.7-6.1)
[2021-08-18 08:26] VITALS: BP 122/55
[2021-08-18] MEDS: FERROUS SULFATE 325MG TABLET PO SCH ×2 (08:48→17:46)
[2021-08-18] MEDS: FUROSEMIDE 20MG TABLET PO SCH (08:48)
[2021-08-18] MEDS: DOCUSATE SODIUM 250MG CAPSULE PO SCH (08:48)
[2021-08-18] MEDS: POTASSIUM CHLORIDE 10MEQ TABLET SR PO SCH (08:49)
[2021-08-18] MEDS: CALCIUM 1250MG TABLET (500MG ELEMENTAL CALCIUM) PO SCH (08:49)
[2021-08-18] MEDS: TAMSULOSIN HCL 0.4MG SR CAPSULE PO SCH (08:50)
[2021-08-18] MEDS: AMLODIPINE 10MG TABLET PO SCH (08:51)
[2021-08-18] MEDS ORDERED: LACTULOSE 20G/30ML UDC PO NR (09:15)
[2021-08-18] MEDS: FAMOTIDINE 20MG TABLET PO SCH ×2 (10:14→21:29)
[2021-08-18] MEDS: LEVOFLOXACIN 500MG TABLET PO SCH (11:23)
[2021-08-18 20:00] VITALS: BP 117/55
[2021-08-19 02:00] VITALS: BP 117/65
[2021-08-19] MEDS: IPRATROPIUM/ALBUTEROL 0.5-3(2.5)MG/3ML NEB HHN SCH ×4 (02:45→21:24)
[2021-08-19] MEDS: CLONIDINE 0.1MG TABLET PO SCH ×3 (06:00→21:12)
[2021-08-19] MEDS: APIXABAN 5 MG TABLET PO SCH ×2 (06:20→18:02)
[2021-08-19] MEDS: GABAPENTIN 300MG CAPSULE PO SCH ×3 (06:20→21:11)
[2021-08-19] MEDS: GLIPIZIDE 5MG TABLET PO SCH (06:23)
[2021-08-19] MEDS: INSULIN LISPRO 100 UNITS/ML SUBCUT SCH ×4 (06:29→21:47)
[2021-08-19 07:39] LABS: BASOPHILS % 0.6 % (0.0-2.0); EOSINOPHILS % 2.8 % (0.0-5.0); HEMATOCRIT. 29.9 % (42.0-52.0); HEMOGLOBIN. 10.6 g/dL (14.0-18.0); LYMPHOCYTES % 25.8 % (20.0-50.0); MEAN CORPUSCULAR HEMOGLOBIN 32.7 pg (28.0-32.0); MEAN CORPUSCULAR VOLUME 92.7 fL (80.0-94.0); MEAN PLATELET VOLUME 7.4 fl (7.4-10.4); MONOCYTES % 7.3 % (2.0-8.0); NEUTROPHILS % 63.5 % (40.0-76.0); PLATELET 261 x1000/uL (130-400); RED BLOOD CELL COUNT 3.22 mill/uL (4.7-6.1)
[2021-08-19 07:55] LABS: CHLORIDE 100 mEq/L (98-107)
[2021-08-19 08:00] VITALS: BP 104/60
[2021-08-19] MEDS: DOCUSATE SODIUM 250MG CAPSULE PO SCH (08:57)
[2021-08-19] MEDS: CALCIUM 1250MG TABLET (500MG ELEMENTAL CALCIUM) PO SCH (08:57)
[2021-08-19] MEDS: FUROSEMIDE 20MG TABLET PO SCH (08:57)
[2021-08-19] MEDS: AMLODIPINE 10MG TABLET PO SCH (08:57)
[2021-08-19] MEDS: FERROUS SULFATE 325MG TABLET PO SCH ×2 (08:58→18:02)
[2021-08-19] MEDS: TAMSULOSIN HCL 0.4MG SR CAPSULE PO SCH (08:58)
[2021-08-19] MEDS: SENNOSIDES/DOCUSATE SOD 8.6/50MG TABLET PO PRN (08:58)
[2021-08-19] MEDS: POTASSIUM CHLORIDE 10MEQ TABLET SR PO SCH ×2 (09:03→09:05)
[2021-08-19] MEDS: FAMOTIDINE 20MG TABLET PO SCH ×2 (09:03→21:11)
[2021-08-19] MEDS ORDERED: MAGNESIUM 2 G PREMIX 50 ML IV NR (10:30)
[2021-08-19] MEDS: ACETAMINOPHEN 325MG TABLET PO PRN (11:54)
[2021-08-19] MEDS: LEVOFLOXACIN 500MG TABLET PO SCH (11:54)
[2021-08-19] MEDS: BLOOD SUGAR DIAGNOSTIC STRIP TEST SCH ×3 (11:56→21:12)
[2021-08-19] MEDS: MAGNESIUM OXIDE 400MG TABLET PO SCH ×2 (15:35→19:37)
[2021-08-19 20:00] VITALS: BP 125/58
[2021-08-20] MEDS: IPRATROPIUM/ALBUTEROL 0.5-3(2.5)MG/3ML NEB HHN SCH ×3 (02:45→22:09)
[2021-08-20 06:58] LABS: BASOPHILS % 0.5 % (0.0-2.0); EOSINOPHILS % 3.4 % (0.0-5.0); HEMATOCRIT. 29.1 % (42.0-52.0); HEMOGLOBIN. 10.2 g/dL (14.0-18.0); LYMPHOCYTES % 25.4 % (20.0-50.0); MEAN CORPUSCULAR HEMOGLOBIN 32.3 pg (28.0-32.0); MEAN CORPUSCULAR VOLUME 92.1 fL (80.0-94.0); MEAN PLATELET VOLUME 7.4 fl (7.4-10.4); MONOCYTES % 7.4 % (2.0-8.0); NEUTROPHILS % 63.3 % (40.0-76.0); PLATELET 249 x1000/uL (130-400); RED BLOOD CELL COUNT 3.17 mill/uL (4.7-6.1)
[2021-08-20 08:00] VITALS: BP 126/67
[2021-08-20 08:09] LABS: CHLORIDE 101 mEq/L (98-107)
[2021-08-20] MEDS: DOCUSATE SODIUM 250MG CAPSULE PO SCH (09:39)
[2021-08-20] MEDS: FAMOTIDINE 20MG TABLET PO SCH ×2 (09:39→21:05)
[2021-08-20] MEDS: MAGNESIUM OXIDE 400MG TABLET PO SCH ×2 (09:40→17:22)
[2021-08-20] MEDS: CALCIUM 1250MG TABLET (500MG ELEMENTAL CALCIUM) PO SCH (09:40)
[2021-08-20] MEDS: FUROSEMIDE 20MG TABLET PO SCH (09:40)
[2021-08-20] MEDS: POTASSIUM CHLORIDE 10MEQ TABLET SR PO SCH (09:40)
[2021-08-20] MEDS: FERROUS SULFATE 325MG TABLET PO SCH ×2 (09:40→17:22)
[2021-08-20] MEDS: TAMSULOSIN HCL 0.4MG SR CAPSULE PO SCH (09:40)
[2021-08-20] MEDS: AMLODIPINE 10MG TABLET PO SCH (09:40)
[2021-08-20] MEDS: BLOOD SUGAR DIAGNOSTIC STRIP TEST SCH ×3 (11:08→21:09)
[2021-08-20] MEDS: LEVOFLOXACIN 500MG TABLET PO SCH (11:44)
[2021-08-20] MEDS: INSULIN LISPRO 100 UNITS/ML SUBCUT SCH ×3 (12:31→21:18)
[2021-08-20] MEDS: GABAPENTIN 300MG CAPSULE PO SCH ×2 (13:23→21:05)
[2021-08-20] MEDS: CLONIDINE 0.1MG TABLET PO SCH ×2 (13:23→21:05)
[2021-08-20] MEDS: APIXABAN 5 MG TABLET PO SCH (17:22)
[2021-08-20 20:00] VITALS: BP 118/63
[2021-08-21] MEDS: IPRATROPIUM/ALBUTEROL 0.5-3(2.5)MG/3ML NEB HHN SCH ×2 (03:17→21:22)
[2021-08-21] MEDS: CLONIDINE 0.1MG TABLET PO SCH ×3 (06:00→22:00)
[2021-08-21] MEDS: APIXABAN 5 MG TABLET PO SCH ×2 (06:26→17:41)
[2021-08-21] MEDS: GABAPENTIN 300MG CAPSULE PO SCH ×3 (06:26→22:03)
[2021-08-21] MEDS: BLOOD SUGAR DIAGNOSTIC STRIP TEST SCH ×4 (06:27→21:00)
[2021-08-21] MEDS: GLIPIZIDE 5MG TABLET PO SCH (06:42)
[2021-08-21] MEDS: INSULIN LISPRO 100 UNITS/ML SUBCUT SCH ×4 (06:47→22:04)
[2021-08-21 08:13] VITALS: BP 117/53
[2021-08-21] MEDS: LACTULOSE 20G/30ML UDC PO PRN (08:58)
[2021-08-21] MEDS: SENNOSIDES/DOCUSATE SOD 8.6/50MG TABLET PO PRN (08:59)
[2021-08-21] MEDS: FUROSEMIDE 20MG TABLET PO SCH (08:59)
[2021-08-21] MEDS: DOCUSATE SODIUM 250MG CAPSULE PO SCH (08:59)
[2021-08-21] MEDS: FAMOTIDINE 20MG TABLET PO SCH ×2 (08:59→22:02)
[2021-08-21] MEDS: CALCIUM 1250MG TABLET (500MG ELEMENTAL CALCIUM) PO SCH (09:00)
[2021-08-21] MEDS: MAGNESIUM OXIDE 400MG TABLET PO SCH ×2 (09:00→17:41)
[2021-08-21] MEDS: AMLODIPINE 10MG TABLET PO SCH (09:00)
[2021-08-21] MEDS: TAMSULOSIN HCL 0.4MG SR CAPSULE PO SCH (09:00)
[2021-08-21] MEDS: POTASSIUM CHLORIDE 10MEQ TABLET SR PO SCH (09:00)
[2021-08-21] MEDS: FERROUS SULFATE 325MG TABLET PO SCH ×2 (09:00→17:41)
[2021-08-21] MEDS ORDERED: NALOXONE HCL 0.4MG/ML VIAL IV PRN (11:15)
[2021-08-21 11:52] LABS: BASOPHILS % 0.7 % (0.0-2.0); EOSINOPHILS % 4.2 % (0.0-5.0); HEMATOCRIT. 34.3 % (42.0-52.0); HEMOGLOBIN. 11.6 g/dL (14.0-18.0); LYMPHOCYTES % 28.2 % (20.0-50.0); MEAN CORPUSCULAR HEMOGLOBIN 31.6 pg (28.0-32.0); MEAN CORPUSCULAR VOLUME 93.5 fL (80.0-94.0); MEAN PLATELET VOLUME 7.5 fl (7.4-10.4); MONOCYTES % 7.2 % (2.0-8.0); NEUTROPHILS % 59.7 % (40.0-76.0); PLATELET 332 x1000/uL (130-400); RED BLOOD CELL COUNT 3.67 mill/uL (4.7-6.1); RED CELL DISTRIBUTION WIDTH 14.2 % (11.6-14.6)
[2021-08-21 12:02] LABS: CHLORIDE 100 mEq/L (98-107)
[2021-08-21] MEDS: LEVOFLOXACIN 500MG TABLET PO SCH (13:36)
[2021-08-21] MEDS: HYDROCODONE/ACETAMINOPHEN 5/325MG TABLET PO PRN ×2 (13:44→22:03)
[2021-08-21 20:00] VITALS: BP 106/63
[2021-08-22] MEDS: IPRATROPIUM/ALBUTEROL 0.5-3(2.5)MG/3ML NEB HHN SCH ×4 (01:08→21:30)
[2021-08-22] MEDS: GLIPIZIDE 5MG TABLET PO SCH (06:04)
[2021-08-22] MEDS: GABAPENTIN 300MG CAPSULE PO SCH ×3 (06:04→21:21)
[2021-08-22] MEDS: APIXABAN 5 MG TABLET PO SCH ×2 (06:04→17:20)
[2021-08-22] MEDS: CLONIDINE 0.1MG TABLET PO SCH ×3 (06:04→21:22)
[2021-08-22] MEDS: BLOOD SUGAR DIAGNOSTIC STRIP TEST SCH ×4 (06:08→21:23)
[2021-08-22] MEDS: INSULIN LISPRO 100 UNITS/ML SUBCUT SCH ×4 (06:08→21:26)
[2021-08-22 10:00] VITALS: BP 104/61
[2021-08-22] MEDS: FERROUS SULFATE 325MG TABLET PO SCH ×2 (10:11→17:20)
[2021-08-22] MEDS: DOCUSATE SODIUM 250MG CAPSULE PO SCH (10:11)
[2021-08-22] MEDS: HYDROCODONE/ACETAMINOPHEN 5/325MG TABLET PO PRN (10:11)
[2021-08-22] MEDS: FUROSEMIDE 20MG TABLET PO SCH (10:12)
[2021-08-22] MEDS: CALCIUM 1250MG TABLET (500MG ELEMENTAL CALCIUM) PO SCH (10:12)
[2021-08-22] MEDS: FAMOTIDINE 20MG TABLET PO SCH ×2 (10:12→21:21)
[2021-08-22] MEDS: AMLODIPINE 10MG TABLET PO SCH (10:13)
[2021-08-22] MEDS: POTASSIUM CHLORIDE 10MEQ TABLET SR PO SCH (10:17)
[2021-08-22] MEDS: MAGNESIUM OXIDE 400MG TABLET PO SCH ×2 (10:17→17:20)
[2021-08-22] MEDS: TAMSULOSIN HCL 0.4MG SR CAPSULE PO SCH (10:20)
[2021-08-22] MEDS: SENNOSIDES/DOCUSATE SOD 8.6/50MG TABLET PO PRN (10:20)
[2021-08-22] MEDS: LEVOFLOXACIN 500MG TABLET PO SCH (12:33)
[2021-08-22 20:00] VITALS: BP 111/58
[2021-08-23] MEDS: BLOOD SUGAR DIAGNOSTIC STRIP TEST SCH ×4 (05:36→21:22)
[2021-08-23] MEDS: GABAPENTIN 300MG CAPSULE PO SCH ×3 (06:34→21:20)
[2021-08-23] MEDS: APIXABAN 5 MG TABLET PO SCH ×2 (06:34→17:15)
[2021-08-23] MEDS: CLONIDINE 0.1MG TABLET PO SCH ×3 (06:35→21:21)
[2021-08-23] MEDS: GLIPIZIDE 5MG TABLET PO SCH (06:35)
[2021-08-23] MEDS: INSULIN LISPRO 100 UNITS/ML SUBCUT SCH ×4 (06:40→21:26)
[2021-08-23] MEDS: IPRATROPIUM/ALBUTEROL 0.5-3(2.5)MG/3ML NEB HHN SCH ×4 (07:13→21:06)
[2021-08-23 08:00] VITALS: BP 121/51
[2021-08-23] MEDS: FUROSEMIDE 20MG TABLET PO SCH (08:47)
[2021-08-23] MEDS: DOCUSATE SODIUM 250MG CAPSULE PO SCH (08:47)
[2021-08-23] MEDS: FERROUS SULFATE 325MG TABLET PO SCH ×2 (08:47→17:15)
[2021-08-23] MEDS: MAGNESIUM OXIDE 400MG TABLET PO SCH ×2 (08:47→17:15)
[2021-08-23] MEDS: TAMSULOSIN HCL 0.4MG SR CAPSULE PO SCH (08:47)
[2021-08-23] MEDS: POTASSIUM CHLORIDE 10MEQ TABLET SR PO SCH (08:47)
[2021-08-23] MEDS: CALCIUM 1250MG TABLET (500MG ELEMENTAL CALCIUM) PO SCH (08:47)
[2021-08-23] MEDS: FAMOTIDINE 20MG TABLET PO SCH ×2 (08:47→21:21)
[2021-08-23] MEDS: HYDROCODONE/ACETAMINOPHEN 5/325MG TABLET PO PRN (08:49)
[2021-08-23] MEDS: AMLODIPINE 10MG TABLET PO SCH (08:52)
[2021-08-23] MEDS: LACTULOSE 20G/30ML UDC PO PRN (11:41)
[2021-08-23] MEDS: LEVOFLOXACIN 500MG TABLET PO SCH (11:41)
[2021-08-23 13:38] VITALS: BP 99/66
[2021-08-23 20:00] VITALS: BP 119/78
[2021-08-24] MEDS: IPRATROPIUM/ALBUTEROL 0.5-3(2.5)MG/3ML NEB HHN SCH ×4 (01:17→20:54)
[2021-08-24] MEDS: CLONIDINE 0.1MG TABLET PO SCH ×3 (05:29→21:49)
[2021-08-24] MEDS: BLOOD SUGAR DIAGNOSTIC STRIP TEST SCH ×4 (05:30→21:44)
[2021-08-24] MEDS: GABAPENTIN 300MG CAPSULE PO SCH ×3 (06:04→21:50)
[2021-08-24] MEDS: GLIPIZIDE 5MG TABLET PO SCH (06:05)
[2021-08-24] MEDS: APIXABAN 5 MG TABLET PO SCH ×2 (06:05→17:36)
[2021-08-24] MEDS: INSULIN LISPRO 100 UNITS/ML SUBCUT SCH ×4 (06:10→22:00)
[2021-08-24 08:00] VITALS: BP 119/75
[2021-08-24] MEDS: ERGOCALCIFEROL 50000UNITS CAPSULE PO SCH (08:58)
[2021-08-24] MEDS: FAMOTIDINE 20MG TABLET PO SCH ×2 (08:58→21:45)
[2021-08-24] MEDS: CALCIUM 1250MG TABLET (500MG ELEMENTAL CALCIUM) PO SCH (08:59)
[2021-08-24] MEDS: AMLODIPINE 10MG TABLET PO SCH (08:59)
[2021-08-24] MEDS: POTASSIUM CHLORIDE 10MEQ TABLET SR PO SCH (08:59)
[2021-08-24] MEDS: MAGNESIUM OXIDE 400MG TABLET PO SCH ×2 (08:59→17:36)
[2021-08-24] MEDS: DOCUSATE SODIUM 250MG CAPSULE PO SCH (08:59)
[2021-08-24] MEDS: FERROUS SULFATE 325MG TABLET PO SCH ×2 (08:59→17:36)
[2021-08-24] MEDS: FUROSEMIDE 20MG TABLET PO SCH (08:59)
[2021-08-24] MEDS: TAMSULOSIN HCL 0.4MG SR CAPSULE PO SCH (09:00)
[2021-08-24] MEDS: HYDROCODONE/ACETAMINOPHEN 5/325MG TABLET PO PRN ×2 (09:02→21:51)
[2021-08-24 20:00] VITALS: BP 111/63
[2021-08-25] MEDS: IPRATROPIUM/ALBUTEROL 0.5-3(2.5)MG/3ML NEB HHN SCH ×3 (02:18→12:00)
[2021-08-25] MEDS: CLONIDINE 0.1MG TABLET PO SCH ×2 (06:00→14:00)
[2021-08-25] MEDS: BLOOD SUGAR DIAGNOSTIC STRIP TEST SCH ×2 (06:05→12:04)
[2021-08-25] MEDS: APIXABAN 5 MG TABLET PO SCH (06:05)
[2021-08-25] MEDS: GABAPENTIN 300MG CAPSULE PO SCH ×2 (06:05→14:27)
[2021-08-25] MEDS: GLIPIZIDE 5MG TABLET PO SCH (06:05)
[2021-08-25 06:59] LABS: BASOPHILS % 0.7 % (0.0-2.0); EOSINOPHILS % 5.6 % (0.0-5.0); HEMATOCRIT. 33.9 % (42.0-52.0); HEMOGLOBIN. 11.5 g/dL (14.0-18.0); LYMPHOCYTES % 35.9 % (20.0-50.0); MEAN CORPUSCULAR HEMOGLOBIN 32.1 pg (28.0-32.0); MEAN CORPUSCULAR VOLUME 94.9 fL (80.0-94.0); MEAN PLATELET VOLUME 7.8 fl (7.4-10.4); MONOCYTES % 6.8 % (2.0-8.0); PLATELET 300 x1000/uL (130-400); RED BLOOD CELL COUNT 3.57 mill/uL (4.7-6.1); RED CELL DISTRIBUTION WIDTH 14.6 % (11.6-14.6)
[2021-08-25 07:06] LABS: CHLORIDE 107 mEq/L (98-107)
[2021-08-25 08:00] VITALS: BP 129/75
[2021-08-25] MEDS: DOCUSATE SODIUM 250MG CAPSULE PO SCH (09:00)
[2021-08-25] MEDS: INSULIN LISPRO 100 UNITS/ML SUBCUT SCH ×2 (09:00→12:03)
[2021-08-25] MEDS: LACTULOSE 20G/30ML UDC PO PRN (09:50)
[2021-08-25] MEDS: FUROSEMIDE 20MG TABLET PO SCH (09:50)
[2021-08-25] MEDS: TAMSULOSIN HCL 0.4MG SR CAPSULE PO SCH (09:51)
[2021-08-25] MEDS: POTASSIUM CHLORIDE 10MEQ TABLET SR PO SCH (09:52)
[2021-08-25] MEDS: AMLODIPINE 10MG TABLET PO SCH (09:52)
[2021-08-25] MEDS: CALCIUM 1250MG TABLET (500MG ELEMENTAL CALCIUM) PO SCH (09:52)
[2021-08-25] MEDS: MAGNESIUM OXIDE 400MG TABLET PO SCH (09:52)
[2021-08-25] MEDS: FERROUS SULFATE 325MG TABLET PO SCH (09:53)
[2021-08-25] MEDS: HYDROCODONE/ACETAMINOPHEN 5/325MG TABLET PO PRN (09:55)
[2021-08-25] MEDS: FAMOTIDINE 20MG TABLET PO SCH (09:56)
[2021-08-25 11:12] VITALS: BP 129/75
== END 2021-08-25 14:30 | disposition home health service (06) | DRG 560 ==
PROVIDERS: ADMIT Psychiatry & Neurology Neurology; ATTEND Internal Medicine Geriatric Medicine
DX: M97.12XA Periprosthetic fracture around internal prosthetic left knee joint, initial encounter (principal); I50.32 Chronic diastolic (congestive) heart failure; N17.9 Acute kidney failure, unspecified; N39.0 Urinary tract infection, site not specified; E87.1 Hypo-osmolality and hyponatremia; M81.0 Age-related osteoporosis without current pathological fracture; E11.69 Type 2 diabetes mellitus with other specified complication; D50.9 Iron deficiency anemia, unspecified; E78.00 Pure hypercholesterolemia, unspecified; I25.10 Atherosclerotic heart disease of native coronary artery without angina pectoris; I11.0 Hypertensive heart disease with heart failure; I48.0 Paroxysmal atrial fibrillation; K59.00 Constipation, unspecified; M96.1 Postlaminectomy syndrome, not elsewhere classified; E78.5 Hyperlipidemia, unspecified; D63.8 Anemia in other chronic diseases classified elsewhere; B96.89 Other specified bacterial agents as the cause of diseases classified elsewhere; I44.0 Atrioventricular block, first degree; E83.42 Hypomagnesemia; F10.20 Alcohol dependence, uncomplicated; M25.461 Effusion, right knee; W18.39XA Other fall on same level, initial encounter; S80.822A Blister (nonthermal), left lower leg, initial encounter; Y90.9 Presence of alcohol in blood, level not specified; R23.8 Other skin changes; R26.89 Other abnormalities of gait and mobility; M24.561 Contracture, right knee; Z86.711 Personal history of pulmonary embolism; Z79.01 Long term (current) use of anticoagulants; Y93.89 Activity, other specified; Y92.89 Other specified places as the place of occurrence of the external cause; Y99.8 Other external cause status
CPT/HCPCS: 36415; 73552; 74018; 80048; 81003; 82962; 83735; 85025; 92610; 93970; 94640; 97110; 97162; 97166; 97530; 97535; J1815; J3475

== ENCOUNTER 2022-05-28 16:47 | Inpatient (IN) | payer MEDICARE, MEDICAID ==
[~2022-05-28] VITALS: Ht 167.6 cm; Wt 80.8 kg
[~2022-05-28 16:47] MED LIST changes: +BENA-8 PO; -BENA20TA10 PO
[2022-05-28 17:40] LABS: BASOPHILS % 0.7 % (0.0-2.0); EOSINOPHILS % 0.7 % (0.0-5.0); HEMOGLOBIN. 13.8 g/dL (14.0-18.0); LYMPHOCYTES % 21.8 % (20.0-50.0); MEAN CORPUSCULAR HEMOGLOBIN 34.5 pg (28.0-32.0); MEAN CORPUSCULAR VOLUME 99.8 fL (80.0-94.0); MEAN PLATELET VOLUME 9.7 fl (7.4-10.4); MONOCYTES % 5.9 % (2.0-8.0); NEUTROPHILS % 70.9 % (40.0-76.0); PLATELET 156 x1000/uL (130-400); RED BLOOD CELL COUNT 4.01 mill/uL (4.7-6.1); RED CELL DISTRIBUTION WIDTH 13.3 % (11.6-14.6)
[2022-05-28 17:57] LABS: CHLORIDE 99 mEq/L (98-107)
[2022-05-28 18:05] LABS: ETHANOL BLOOD 222 mg/dL
[2022-05-28] MEDS ORDERED: INSULIN REGULAR (HUMULIN R) 300UNITS/3ML VIAL SUBCUT NR (18:15)
[2022-05-28] MEDS ORDERED: SODIUM CHLORIDE 0.9% 1,000 ML IV ONE (18:15)
[2022-05-28] MEDS ORDERED: FOLIC ACID 1 MG, THIAMINE HCL 100 MG, MVI, ADULT NO.1 10 ML in DEXTROSE 5% WATER 1,000 ML IV ONE ×4 (19:00)
[2022-05-28 21:50] VITALS: BP 91/39
[2022-05-28 22:55] VITALS: BP 95/39
[2022-05-29] VITALS: BP 98/45
[2022-05-29] MEDS ORDERED: DEXTROSE 50% WATER 50ML SYRINGE IV PRN (00:15)
[2022-05-29] MEDS ORDERED: INSULIN GLARGINE 100 UNITS/ML SUBCUT NR (00:15)
[2022-05-29] MEDS: SODIUM CHLORIDE 0.9% 1,000 ML IV SCH ×3 (00:37→20:32)
[2022-05-29 04:00] VITALS: BP 100/52
[2022-05-29] MEDS: BLOOD SUGAR DIAGNOSTIC STRIP TEST SCH ×4 (07:53→21:48)
[2022-05-29 08:00] VITALS: BP 96/50
[2022-05-29 08:26] LABS: BASOPHILS % 0.5 % (0.0-2.0); EOSINOPHILS % 3.3 % (0.0-5.0); HEMATOCRIT. 37.2 % (42.0-52.0); HEMOGLOBIN. 12.8 g/dL (14.0-18.0); LYMPHOCYTES % 28.4 % (20.0-50.0); MEAN CORPUSCULAR HEMOGLOBIN 33.9 pg (28.0-32.0); MEAN CORPUSCULAR VOLUME 98.7 fL (80.0-94.0); MEAN PLATELET VOLUME 9.1 fl (7.4-10.4); MONOCYTES % 6.8 % (2.0-8.0); PLATELET 135 x1000/uL (130-400); RED BLOOD CELL COUNT 3.77 mill/uL (4.7-6.1); RED CELL DISTRIBUTION WIDTH 13.7 % (11.6-14.6)
[2022-05-29 08:47] LABS: CHLORIDE 108 mEq/L (98-107)
[2022-05-29] MEDS: INSULIN LISPRO 100 UNITS/ML SUBCUT SCH ×4 (08:56→20:33)
[2022-05-29 12:00] VITALS: BP 112/60
[2022-05-29] MEDS: CHLORDIAZEPOXIDE 25MG CAPSULE PO SCH ×2 (13:17→22:15)
[2022-05-29 16:00] VITALS: BP 116/61
[2022-05-29 16:35] LABS: CLARITY URINE CLEAR (CLEAR); COLOR URINE YELLOW (YELLOW); KETONES URINE NEGATIVE (NEGATIVE); LEUKOCYTE ESTERASE URINE NEGATIVE (NEGATIVE); NITRITE URINE NEGATIVE (NEGATIVE); OCCULT BLOOD URINE NEGATIVE (NEGATIVE); PROTEIN URINE NEGATIVE (NEGATIVE); SPECIFIC GRAVITY URINE 1.023 (1.005-1.030); UROBILINOGEN URINE 0.2 E.U./dL (0.2-1.0)
[2022-05-29 16:55] LABS: *AMPHETAMINES SCREEN URINE NEGATIVE (NEGATIVE); *BARBITURATES SCREEN URINE NEGATIVE (NEGATIVE); *BENZODIAZEPINES SCREEN URINE NEGATIVE (NEGATIVE); *COCAINE SCREEN URINE NEGATIVE (NEGATIVE); CANNABINOID URINE SCREEN NEGATIVE (NEGATIVE); METHADONE URINE SCREEN NEGATIVE (NEGATIVE); OPIATES URINE SCREEN PRESUMTIVE POSITIVE (NEGATIVE); PHENCYCLIDINE URINE SCREEN NEGATIVE (NEGATIVE)
[2022-05-29 20:00] VITALS: BP 128/75
[2022-05-29] MEDS ORDERED: ZOLPIDEM TARTRATE 5MG TABLET PO PRN (21:00)
[2022-05-29] MEDS ORDERED: INSULIN GLARGINE 100 UNITS/ML SUBCUT SCH (22:00)
[2022-05-30] VITALS: BP 122/66
[2022-05-30 04:00] VITALS: BP 133/73
[2022-05-30] MEDS: CHLORDIAZEPOXIDE 25MG CAPSULE PO SCH ×2 (05:12→14:14)
[2022-05-30] MEDS: SODIUM CHLORIDE 0.9% 1,000 ML IV SCH ×2 (06:56→16:15)
[2022-05-30] MEDS: BLOOD SUGAR DIAGNOSTIC STRIP TEST SCH ×2 (07:20→12:20)
[2022-05-30 08:00] VITALS: BP 130/66
[2022-05-30] MEDS: INSULIN LISPRO 100 UNITS/ML SUBCUT SCH ×2 (09:05→14:15)
[2022-05-30 12:00] VITALS: BP 135/75
[2022-05-30 15:39] VITALS: BP 135/75
== END 2022-05-30 16:56 | disposition home or self-care (01) | DRG 637 ==
LOC: ER 16:47 → 6WST 19:27 → EDBEDREQTM 19:40 → EDBEDREQ 19:40 → ENRESERV 20:51
PROVIDERS: ADMIT Internal Medicine; ATTEND Internal Medicine
DX: E11.65 Type 2 diabetes mellitus with hyperglycemia (principal); E11.00 Type 2 diabetes mellitus with hyperosmolarity without nonketotic hyperglycemic-hyperosmolar coma (NKHHC); N17.9 Acute kidney failure, unspecified; F10.229 Alcohol dependence with intoxication, unspecified; E78.00 Pure hypercholesterolemia, unspecified; I25.10 Atherosclerotic heart disease of native coronary artery without angina pectoris; I95.9 Hypotension, unspecified; E78.5 Hyperlipidemia, unspecified; Y90.7 Blood alcohol level of 200-239 mg/100 ml; Z96.659 Presence of unspecified artificial knee joint; Z86.711 Personal history of pulmonary embolism
CPT/HCPCS: 36415; 71045; 80048; 80053; 80305; 80307; 80320; 80329; 81003; 82962; 83036; 85025; 99285; J1815; J3411; J3490; J7030; J7070; G0480

== ENCOUNTER 2023-05-06 16:15 | Emergency (ER) | payer MEDICARE, MEDICAID ==
[~2023-05-06] VITALS: Ht 172.7 cm; Wt 82.0 kg
[~2023-05-06 16:15] MED LIST changes: -GABA-532 PO; -ZOLP10TA6 PO
[2023-05-06 16:19] VITALS: BP 146/130; PULSE 55; RESP 16; TEMP 98.4; O2SAT 98
[2023-05-06 16:57] LABS: BASOPHILS % 0.8 % (0.0-2.0); EOSINOPHILS % 2.5 % (0.0-5.0); HEMATOCRIT. 40.4 % (42.0-52.0); HEMOGLOBIN. 13.9 g/dL (14.0-18.0); LYMPHOCYTES % 35.1 % (20.0-50.0); MEAN CORPUSCULAR HEMOGLOBIN 34.3 pg (28.0-32.0); MEAN CORPUSCULAR HGB CONC 34.5 g/dL (31.0-37.0); MEAN CORPUSCULAR VOLUME 99.3 fL (80.0-94.0); MONOCYTES % 7.3 % (2.0-8.0); NEUTROPHILS % 54.3 % (40.0-76.0); PLATELET 164 x1000/uL (130-400); RED BLOOD CELL COUNT 4.07 mill/uL (4.7-6.1); RED CELL DISTRIBUTION WIDTH 13.7 % (11.6-14.6); WHITE BLOOD COUNT 9.5 x1000/uL (4.5-11.0)
[2023-05-06 17:10] LABS: CHLORIDE 101 mEq/L (98-107); INDEX HEMOLYSI 1 (1-3); INDEX ICTERIC 1 (1-4); INDEX LIPEMIC 1 (1-3); POTASSIUM 3.4 mEq/L (3.5-5.1); SODIUM 134 mEq/L (136-145)
[2023-05-06 17:23] LABS: ACETAMINOPHEN <2 ug/mL ug/mL (10-30); ALANINE AMINOTRANSFERASE 24 IU/L (13-61); ASPARTATE AMINOTRANSFERASE 17 IU/L (15-37); BILIRUBIN TOTAL 0.3 mg/dL (0.1-1.0); CALCIUM 8.4 mg/dL (8.5-10.1); CARBON DIOXIDE 21 mEq/L (21-32); CREATININE 1.2 mg/dL (0.6-1.3); GLUCOSE 143 mg/dL (70-105); PROTEIN TOTAL 7.6 g/dL (6.0-8.3); UREA NITROGEN BLOOD 19 mg/dL (7-21)
[2023-05-06 17:24] LABS: ETHANOL BLOOD 345 mg/dL (-10)
== END 2023-05-07 00:38 | disposition home or self-care (01) ==
LOC: ER 16:15
DX: S09.90XA Unspecified injury of head, initial encounter (principal); F10.229 Alcohol dependence with intoxication, unspecified; Y90.0 Blood alcohol level of less than 20 mg/100 ml; W18.39XA Other fall on same level, initial encounter; Y93.89 Activity, other specified; Y92.89 Other specified places as the place of occurrence of the external cause; Y99.8 Other external cause status; E11.9 Type 2 diabetes mellitus without complications; E78.00 Pure hypercholesterolemia, unspecified; I10 Essential (primary) hypertension; Z79.899 Other long term (current) drug therapy
CPT/HCPCS: 36415; 80053; 80307; 80320; 80329; 85025; 99284; G0480

== ENCOUNTER 2023-09-27 17:33 | Emergency (ER) | payer OTHER, MEDICAID ==
[~2023-09-27] VITALS: Ht 170.2 cm; Wt 81.0 kg
[~2023-09-27 17:33] MED LIST changes: -GLIP5TAB12 PO; +GLIP5TAB22 PO
[2023-09-27 17:46] VITALS: O2SAT 98
[2023-09-27 21:26] VITALS: BP 115/67; PULSE 82; RESP 16; TEMP 98.2
== END 2023-09-27 21:39 | disposition home or self-care (01) ==
LOC: ER 17:33
DX: S72.402A Unspecified fracture of lower end of left femur, initial encounter for closed fracture (principal); E11.9 Type 2 diabetes mellitus without complications; E78.00 Pure hypercholesterolemia, unspecified; I10 Essential (primary) hypertension; F10.10 Alcohol abuse, uncomplicated; Z96.653 Presence of artificial knee joint, bilateral; Y90.9 Presence of alcohol in blood, level not specified; X58.XXXA Exposure to other specified factors, initial encounter; Y93.89 Activity, other specified; Y92.89 Other specified places as the place of occurrence of the external cause; Y99.8 Other external cause status
CPT/HCPCS: 73562; 99283